=== PATIENT | female | born 1990 | race American Indian/Alaskan Native ===

== ENCOUNTER 2017-12-22 10:25 | Outpatient (CLI) | payer MEDICAID ==
[2017-12-22] MEDS ORDERED: LACTATED RINGERS 500 ML IV ONE ×2 (10:43→10:46)
[2017-12-22 11:43] LABS: Bilirubin,Urine NEG (Negative); Blood,Urine NEG (Negative); Color,Urine Yellow (Yellow); Mucus,Urine 2+ /HPF; Protein,Urine <15 mg/dL mg/dL (Negative); Urobilinogen,Urine < 2.0 mg/dL (<2.0)
[2017-12-22 12:15] VITALS: BP 112/62
== END 2017-12-22 12:32 | disposition home or self-care (01) ==
LOC: TRG 10:25
PROVIDERS: ATTEND Obstetrics & Gynecology
DX: O47.03 False labor before 37 completed weeks of gestation, third trimester (principal); Z3A.28 28 weeks gestation of pregnancy
CPT/HCPCS: 59025; 81001

== ENCOUNTER 2018-02-22 14:05 | Outpatient (CLI) | payer MEDICAID ==
[2018-02-22 14:49] VITALS: BP 125/75
== END 2018-02-22 16:17 | disposition home or self-care (01) ==
LOC: TRG 14:05
PROVIDERS: ATTEND Obstetrics & Gynecology
DX: O47.1 False labor at or after 37 completed weeks of gestation (principal); Z3A.38 38 weeks gestation of pregnancy; Z88.0 Allergy status to penicillin
CPT/HCPCS: 59025

== ENCOUNTER 2018-02-26 08:40 | Inpatient (IN) | payer MEDICAID ==
[2018-02-26] MEDS ORDERED: STADOL IV PRN (09:12)
[2018-02-26] MEDS ORDERED: ePHEDrine SULFATE IV PRN (09:12)
--- NOTE | 2018-02-26 09:17 | History and Physical Report ---
History of Present Illness Date of examination: 02/26/18 Date of admission: 02/26/18 08:41 Chief complaint: contractions History of present illness: Pt is a 27 year old female MOUSTAPHA 03/06/18 at 38w6d who presents with contractions since 7 am, leakage of fluid "while on my way here" and advanced cervical dilation of 9 cm. She has had care at [facility] since 14 wks complicated by alpha thalassemia carrier status and genital herpes without lesion or prodrome. She is GBS negative. 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 Family/Genetic History: none Social history: no significant social history - Obstetrical History Expected Date of Delivery: 03/06/18 Actual Gestation: 38 Week(s) 6 Day(s) : 2 Para: 1 Hx # Term Pregnancies: 1 Number of Pregnancies: 0 Spontaneous Abortions: 0 Induced : 0 Number of Living Children: 1 Medications and Allergies Allergies Allergy/AdvReac Type Severity Reaction Status Date / Time Penicillins Allergy Intermediate Hives Verified 12/22/17 11:00 Review of Systems All systems: negative - Vital Signs Vital signs: Temp Pulse Resp BP Pulse Ox 92 H 123/83 02/26/18 09:17 02/26/18 09:17 - Physical Exam Breasts: Positive: deferred Cardiovascular: Regular rate Lungs: Positive: Clear to auscultation Abdomen: Positive: soft (gravid ) Genitourinary (Female): Positive: normal external genitalia Uterus: Positive: enlarged (gravid ) Extremities: Positive: normal - Obstetrical FHR: auscultation normal Uterine Contraction Monitor Mode: External Cervical Dilatation: 9 Cervical Effacement Percentage: 100 station: +1 Uterine Contraction Pattern: Regular Uterine Tone Measurement Phase: Resting Uterine Contraction Intensity: Strong/Firm Results All other labs normal. Assessment and Plan A: IUP at 38w6d Active labor SROM Genital Herpes GBS negative Alpha thalassemia carrier P: Admit to labor and delivery. Routine intrapartum care. Anticipate
--- NOTE | 2018-02-26 09:21 | Procedure Note ---
OB Delivery Note - Delivery Date of Delivery: 02/26/18 Surgeon: TRISTEN JALLOH Estimated blood loss: 300cc - Vaginal Delivery presentation: vertex Delivery position: OA Intrapartum events: meconium (terminal ), precipitous labor- <3hr Delivery induction: none Delivery monitor: external FHT, external uterine Route of delivery: Delivery placenta: spontaneous Episiotomy: none Delivery laceration: other (Right periurethral - hemostatic ) Anesthesia: none Delivery comments: Pt progressed to complete/complete/+2 and pushed to deliver a viable female via over intact perineum under no anesthesia. Head delivered in AUTUMN presentation, followed easily by shoulders and body. bulb suctioned on maternal abdomen. Cord clamped and cut and handed to nurse in attendance. Cord blood collected. Placenta delivered spontaneously. Vagina and perineum explored. Right periurethral laceration hemostatic. Pitocin 20 units IM administered as pt does not have IV access yet. EBL 300 ML. - Infant A at 1 minute: 8 at 5 minutes: 9 Gender: Female (3033g (7lb 5oz) @ 0900 am)
[2018-02-26] MEDS ORDERED: LACTATED RINGERS 1,000 ML IV SCH (10:00)
[2018-02-26] MEDS ORDERED: PITOCin/NS 20 UNIT/1000ML DRIP 20 UNITS/1,000 ML BAG IV SCH ×2 (10:00→11:50)
[2018-02-26] MEDS ORDERED: XYLOCAINE 2% INFILTRATI NR (10:30)
[2018-02-26] MEDS ORDERED: NARCAN 0.4 MG/1 ML IV PRN (10:30)
[2018-02-26] MEDS ORDERED: BRETHINE IVP PRN (10:30)
[2018-02-26] MEDS ORDERED: BRETHINE SUB-Q PRN (10:30)
[2018-02-26] MEDS ORDERED: SUBLIMAZE IV PRN (10:30)
[2018-02-26] MEDS ORDERED: ZOFRAN IV PRN ×2 (10:30→11:50)
[2018-02-26 10:39] LABS: Hematocrit 34.8 % (30.3-42.9); Hemoglobin 11.5 gm/dl (10.1-14.3); Mean Corpuscular HGB Conc 33 % (30-34); Mean Corpuscular Hemoglobin 29 pg (28-32); Mean Corpuscular Volume 87 fl (79-97); Platelet Count 231 K/mm3 (140-440); Red Blood Count 3.98 M/mm3 (3.65-5.03); Red Cell Distribution Width 14.1 % (13.2-15.2)
[2018-02-26] MEDS ORDERED: SODIUM CHLORIDE FLUSH SYRINGE 10 ML IV NR (11:50)
[2018-02-26] MEDS ORDERED: MILK OF MAGNESIA PO PRN (11:50)
[2018-02-26] MEDS ORDERED: NORCO 5/325 PO PRN (11:50)
[2018-02-26] MEDS ORDERED: TYLENOL PO PRN (11:50)
[2018-02-26] MEDS ORDERED: PHENERGAN PR PRN (11:50)
[2018-02-26] MEDS ORDERED: DULCOLAX PR PRN (11:50)
[2018-02-26] MEDS ORDERED: BENADRYL PO PRN (11:50)
[2018-02-26] MEDS ORDERED: TUCKS PAD TP PRN (11:50)
[2018-02-26] MEDS ORDERED: PHENERGAN PO PRN (11:50)
[2018-02-26] MEDS ORDERED: LANSINOH TP PRN ×2 (11:50)
[2018-02-26] MEDS ORDERED: DERMOPLAST TP PRN (11:50)
[2018-02-26] MEDS: MOTRIN PO SCH (18:15)
[2018-02-26 21:25] LABS: Hematocrit 29.3 % (30.3-42.9); Hemoglobin 9.8 gm/dl (10.1-14.3)
[2018-02-26] MEDS: FEOSOL PO SCH (22:22)
[2018-02-27] MEDS: MOTRIN PO SCH ×3 (00:27→12:00)
[2018-02-27 08:33] VITALS: BP 122/78
[2018-02-27] MEDS ORDERED: BOOSTRIX IM ONE (09:22)
[2018-02-27] MEDS ORDERED: M-M-R II VACCINE SUB-Q ONE (09:22)
[2018-02-27] MEDS: FEOSOL PO SCH (10:00)
--- NOTE | 2018-02-27 12:44 | Progress Note ---
Assessment and Plan O; VSS AF PP H/H: 9.8/29.9 A: Stable PP Day 1 Anemia p: Iron D/C home Subjective - Subjective Date of service: 02/27/18 Patient reports: appetite normal, voiding normally, pain well controlled, flatus , ambulating normally [place]: doing well Objective - Vital Signs Latest vital signs: Vital Signs Temp Pulse Resp BP BP Pulse Ox 02/27/18 07:50 97.8 F 72 18 122/78 99 02/27/18 07:49 18 02/27/18 06:49 18 02/27/18 04:00 98.7 F 73 18 105/67 02/27/18 01:27 18 02/27/18 00:27 18 02/27/18 00:00 98 F 78 16 102/69 02/26/18 19:30 98.7 F 69 16 110/67 02/26/18 17:01 98.4 F 75 18 124/90 98 Intake and Output 02/26/18 02/27/18 02/27/18 22:59 06:59 14:59 Intake Total 540 480 440 Output Total 900 Balance -360 480 440 Intake: Oral 260 Intake, Free Water 540 480 180 Output: Urine 900 Void 900 Other: Total, Intake Amount 260 Total, Output Amount 900 # Voids Void 2 1 0 - Exam Breasts: Present: deferred Abdomen: Present: normal appearance, soft. Absent: distention, tenderness Uterus: Present: normal, firm, fundal height below umbilicus. Absent: bogginess , tenderness Extremities: Present: normal - Labs Labs: Abnormal lab results 02/26/18 Range/Units 21:07 Hgb 9.8 L (10.1-14.3) gm/dl Hct 29.3 L (30.3-42.9) %
--- NOTE | 2018-02-27 12:46 | Discharge Summary ---
Providers - Providers Date of Admission: 02/26/18 08:41 Date of discharge: 02/27/18 Attending physician: TRISTEN JALLOH 02/26/18 11:50 Consult to Surgical Aides Teacher [CONS] Routine Reason For Exam: assistance with , SNS Primary care physician: TRISTEN JALLOH Hospitalization Reason for admission: active labor, IUP at term Delivery: Episiotomy: none Laceration: other (right periurethral) Other procedures: none complications: none Discharge diagnosis: IUP at term delivered baby: female Condition at discharge: Good Disposition: DC-[id number] TO HOME OR SELFCARE Plan - Discharge Medications Prescriptions: Ibuprofen [Motrin 600 MG tab] 600 mg PO Q6H PRN #30 tablet PRN Reason: pain - Provider Discharge Summary Activity: routine, no sex for 6 weeks, no heavy lifting 4 weeks, no strenuous exercise Diet: routine Instructions: routine Additional instructions: [] Smoking cessation referral if applicable(refer to patient education folder for contact #) [] Refer to [facility] Booklet Call your doctor immediately for: * Fever > 100.5 * Heavy vaginal bleeding ( >1 pad per hour) * Severe persistent headache * Shortness of breath * Reddened, hot, painful area to leg or breast * Drainage or odor from incision. * Keep incision clean and dry at all times and follow doctor's instructions regarding bathing/showering - Follow up plan Follow up: TRISTEN JALLOH MD [Primary Care Provider] - (RTO 4 weeks )
== END 2018-02-27 16:00 | disposition home or self-care (01) | DRG 774 ==
LOC: TRG 08:40 → LD 08:41 → TRG 08:41 → OB 11:50
PROVIDERS: ADMIT Obstetrics & Gynecology; ATTEND Obstetrics & Gynecology
PROC: 10E0XZZ Delivery of Products of Conception, External Approach (ICD-10-PCS; principal; 2018-02-26)
PROC: 3E0234Z Introduction of Serum, Toxoid and Vaccine into Muscle, Percutaneous Approach (ICD-10-PCS; 2018-02-27)
DX: O62.3 Precipitate labor (principal); O98.52 Other viral diseases complicating childbirth; Z37.0 Single live birth; Z88.0 Allergy status to penicillin; O77.0 Labor and delivery complicated by meconium in amniotic fluid; Z3A.38 38 weeks gestation of pregnancy; O71.82 Other specified trauma to perineum and vulva; O90.81 Anemia of the puerperium; D64.9 Anemia, unspecified; Z23 Encounter for immunization; B00.9 Herpesviral infection, unspecified
CPT/HCPCS: 36415; 85014; 85018; 85027; 86850; 86900; 86901; J2590; J3010